=== PATIENT | female | born 1975 | race Caucasian/White ===

== ENCOUNTER 2020-05-27 02:10 | Emergency (ER) | payer OTHER ==
[~2020-05-27] VITALS: Ht 162.6 cm; Wt 63.5 kg
[~2020-05-27 02:10] MED LIST: CEFUROXIME500 MG PO; KETO10TA2 PO
== END 2020-05-27 06:42 | disposition home or self-care (01) ==
LOC: ER 02:10
DX: R00.2 Palpitations (principal); I10 Essential (primary) hypertension

== ENCOUNTER 2021-04-28 09:45 | Day surgery (SDC) | payer OTHER | END 2021-04-28 15:40 | disposition home or self-care (01) | LOC: AMB-ENDOS 09:45 | PROVIDERS: ATTEND Colon & Rectal Surgery | DX: K62.89 Other specified diseases of anus and rectum (principal); K64.0 First degree hemorrhoids ==

== ENCOUNTER 2024-01-16 22:44 | Emergency (ER) | payer OTHER ==
[~2024-01-16] VITALS: Ht 162.6 cm; Wt 59.0 kg
[2024-01-16] MEDS ORDERED: TOPROL XL50 M1 PO (22:49)
[2024-01-16] MEDS ORDERED: NORVASC2.5 M1 PO (22:49)
[2024-01-16] MEDS ORDERED: THIAMINE HCL 100 MG/ML 2 ML VIAL ONE (23:43)
[2024-01-16] MEDS ORDERED: 0.9 % SODIUM CHLORIDE 1,000 ML IV SCH (23:45)
[2024-01-16] MEDS ORDERED: THIAMINE HCL 100 MG/ML 2 ML VIAL IV ONE (23:45)
[2024-01-16] MEDS ORDERED: LevETIRAcetam 500 MG/5 ML VIAL IV ONE (23:45)
[2024-01-16 23:56] LABS: HEMATOCRIT 37.5 % (36.0-45.00); HEMOGLOBIN 12.9 g/dL (12.0-15.00); MEAN CELL VOLUME 103.6 fL (80.00-100.00); MEAN CORPUSCULAR HEMOGLOBIN 35.6 pg (27.00-32.0); MEAN CORPUSCULAR HGB CONC 34.3 g/dl (32.0-36.0); PLATELET COUNT 255 K/uL (150-450); RED BLOOD COUNT 3.62 M/uL (4.00-6.00); RED CELL DISTRIBUTION WIDTH 14.2 % (11.5-14.5)
[2024-01-17 00:18] LABS: INR < 0.93; PARTIAL THROMBOPLASTIN TIME 27.3 SECONDS (22.0-34.0); PROTHROMBIN TIME 9.8 SECONDS (9.0-11.5)
[2024-01-17 00:24] LABS: ALBUMIN 4.3 gm/dL (3.4-5.0); BILIRUBIN TOTAL 0.31 mg/dL (0.3-1.2); BILIRUBIN,CONJUGATED 0.11 mg/dL (0.0-0.2); BILIRUBIN,UNCONJUGATED 0.2 mg/dL (0.0-0.6); CALCIUM 9.2 mg/dL (8.5-10.1); CREATININE SERUM 0.74 mg/dL (0.55-1.02); GFR 84.12; GLOBULINA 3.9 G/DL (2.4-3.5); POTASSIUM 3.7 mEq/L (3.5-5.1); TOTAL PROTEIN 8.2 gm/dL (6.4-8.2)
== END 2024-01-17 02:40 | disposition home or self-care (01) ==
LOC: ER 22:45
PROVIDERS: General Practice
DX: U07.1 COVID-19 (principal); R56.9 Unspecified convulsions; F10.939 Alcohol use, unspecified with withdrawal, unspecified; I10 Essential (primary) hypertension